=== PATIENT | female | born 1965 | race Caucasian/White ===

== ENCOUNTER 2020-03-02 00:08 | Emergency (ER) | payer OTHER ==
[~2020-03-02] VITALS: Ht 162.6 cm; Wt 73.6 kg
[~2020-03-02 00:08] MED LIST: HYDR1TAB13 PO
--- NOTE | 2020-03-02 00:14 | PHYS DOC ---
Past History Past Medical History: Arthritis, Diabetes, High Cholesterol, Hypertension Past Surgical History: Other Alcohol Use: None Drug Use: None General Adult HPI: HPI: ".. I getting weird episodes of swelling in hands and ..feet.. ".. " I got an apt. on with my primary...at 0900 hrs. but I just wanted someone to look at it tonight... It sometimes in my feet, sometimes in the other hand.. it is weird. ".. " It s been going on the past 3 weeks.. more this last two weeks.." Patient is a 55 year old female who presents with right hand edema. Patient states onset of the stent was within the last 24 hours. Patient has had polyarthritic complaints and myalgia in her joints. Areas of flare up are sometimes in other hand or and feet. There is a history of possible rheumatoid arthritis and has previously had a positive PATRICK. 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 Patient's family history multiple members have rheumatoid arthritis or rheumatological complaints. Pt does follow at [place] and with Dr. Robbins. No recent travel. No history of trauma. No history of recent fever chills. No specific ill contacts. Patient right hand is somewhat erythemic.. Fingers are swollen. Does have range of motion. Cap refill is equal to left hand. No adenopathy in arm. No striations. Pain and joint seem worse early in the morning but improves throughout the day. Patient does have a history of diabetes and hypertension. Does have follow-up pending at [facility] for A1c and other blood work. Patient denies any blood draws currently. Patient declines any x-rays currently. Patient states she just wanted to have someone else see the strange swelling she gets in her hands and feet. Review of Systems: Review of Systems: Constitutional: Denies fever or chills Eyes: Denies change in visual acuity HENT: Denies nasal congestion or sore throat Respiratory: Denies cough or shortness of breath Cardiovascular: Denies chest pain or edema GI: Denies abdominal pain, nausea, vomiting, bloody stools or diarrhea : Denies dysuria Musculoskeletal: Complains of episodes of polyarthritis. Different areas of edema and pain sometimes right hand sometimes feet. Integument: Denies rash Neurologic: Denies headache, focal weakness or sensory changes Endocrine: Denies polyuria or polydipsia Lymphatic: Denies swollen glands Psychiatric: Denies depression or anxiety Family History: Family History: Multiple family members with rheumatological issues, rheumatoid arthritis. Mother and great aunt had diagnosis of rheumatoid Current Medications: Current Meds: See nursing for home meds Allergies: Allergies: Allergies Coded Allergies Type Severity Reaction Last Updated Verified No Known Drug Allergies 02/11/16 No Physical Exam: PE: Constitutional: Moderate acute distress, non-toxic appearance. [] HENT: Normocephalic, atraumatic, bilateral external ears normal, oropharynx moist, no oral exudates, nose mild edema and clear rhinorrhea. No temporal artery tenderness Eyes: PERRLA, EOMI, conjunctiva normal, no discharge. [] Neck: Normal range of motion, no tenderness, supple, no stridor. [] Cardiovascular:Heart rate regular rhythm, no murmur, PMI to left Lungs & Thorax: Bilateral breath sounds equal apex with scattered wheezes auscultation [] Abdomen: Bowel sounds normal, soft, no tenderness, no masses, no pulsatile masses. [] Skin: Warm, dry, no erythema, no rash. Poor turgor. Back: No tenderness, no CVA tenderness. [] Extremities: Right hand tenderness, no cyanosis, no clubbing, ROM intact, right hand edema. [] Neurologic: Alert and oriented X 3, normal motor function, normal sensory function, no focal deficits noted. [] Psychologic: Affect anxious, judgement normal, mood normal. [] EKG: EKG: [] Radiology/Procedures: Radiology/Procedures: Declines x-ray at this time [] Heart Score: Risk Factors: Risk Factors: DM, Current or recent (<one month) smoker, HTN, HLP, family history of CAD, obesity. Risk Scores: Score 0 - 3: 2.5% MACE over next 6 weeks - Discharge Home Score 4 - 6: 20.3% MACE over next 6 weeks - Admit for Clinical Observation Score 7 - 10: 72.7% MACE over next 6 weeks - Early Invasive Strategies Course & Med Decision Making: Course & Med Decision Making Pertinent Labs and Imaging studies reviewed. (See chart for details) Patient declines lab work at this time. Recommend patient keep follow-up with primary care at [place]. Consider baseline CBC and electrolytes. To also consider adding rheumatological labs such as rheumatoid factor, PATRICK, DS, ADNA, cyclic citrullinated peptide antibody, sed rate, and/or CRP, Sysphillis titers, lupus ect. .Recommended plan films of hands. Would take anti-inflammatories and Tylenol for discomfort currently. Return if she elects to have x-rays and labs here . Return if any concerns. Advised patient presentation somewhat consistent with a mixed tissue, ploymyalgia rheumatica, rheumatoid arthritis, and rheumatological inflammation. Especially with rotating swollen painful joints. Impression: 1. Multiple joint arthritic complaints that seem to rotate-suspect rheumatoid arthritis versus other rheumatological issues causing the arthritic pain and interment edema 2. History of diabetes [] Dragon Disclaimer: Oswaldo Disclaimer: This electronic medical record was generated, in whole or in part, using a voice recognition dictation system. Departure Departure: Referrals: TANIA ROBBINS DO (PCP) Oswaldo Disclaimer This chart was dictated in whole or in part using Voice Recognition software in a busy, high-work load, and often noisy Emergency Department environment. It may contain unintended and wholly unrecognized errors or omissions. NIRAJ KIRKPATRICK MD Mar 02, 2020 00:14
[2020-03-02 01:44] VITALS: BP 134/68
== END 2020-03-02 01:44 | disposition home or self-care (01) ==
LOC: ER 00:08
DX: M19.041 Primary osteoarthritis, right hand (principal); E11.9 Type 2 diabetes mellitus without complications; E78.00 Pure hypercholesterolemia, unspecified; I10 Essential (primary) hypertension
CPT/HCPCS: 99282

== ENCOUNTER 2020-04-03 10:01 | Emergency (ER) | payer OTHER ==
[~2020-04-03] VITALS: Ht 162.6 cm; Wt 73.6 kg
[2020-04-03 10:16] VITALS: BP 115/76
[2020-04-03] MEDS ORDERED: DEXAMETHASONE SOD PHOS 10 MG/ML VIAL. IM ONE (10:45)
[2020-04-03] MEDS ORDERED: HYDR50CA2 PO (10:48)
[2020-04-03] MEDS ORDERED: FEXO180T81 PO (10:48)
--- NOTE | 2020-04-03 10:48 | PHYS DOC ---
Past History Past Medical History: Arthritis, Diabetes, High Cholesterol, Hypertension Past Surgical History: Other Alcohol Use: None Drug Use: None General Adult EDM: Chief Complaint: FACE PROBLEM HPI: HPI: Patient is a 55-year-old female coming in for right eye swelling. Complaining of the itching rash on her stomach. Has been having multiple outbreaks of pruritic rashes. Also has a history of chronic UTIs. Denies any fevers, mouth sores, difficulty swallowing. No tearing or drainage from the eye. No vision changes or pain. States that she took Benadryl last night that she usually takes for sleep the itching got better. Has a new detergents but denies any other new medications or exposures. Has been seeing her primary care and being evaluated. Suggesting a neurologist this week. Has a history of allergic reactions to seafood which required similar reactions. No recent illness, fevers, coughing, lower extremity edema. Review of Systems: Review of Systems: All other systems within normal limits except for as noted in the HPI Allergies: Allergies: Allergies Coded Allergies Type Severity Reaction Last Updated Verified No Known Drug Allergies 03/02/20 No Physical Exam: PE: Constitutional: Well developed, well nourished, no acute distress, non-toxic appearance. [] HENT: Normocephalic, atraumatic, bilateral external ears normal, nose normal, swelling around right eye. [] Eyes: PERRLA, conjunctiva normal, no discharge, extraocular was intact. [] Neck: No rigidity, supple, no stridor. [] Cardiovascular: Regular rate and rhythm, brisk cap refill [] Lungs & Thorax: Non labored symmetric respirations, no tachypnea or respiratory distress [] Abdomen: Soft, nondistended. Skin: Warm, dry, no erythema, erythematous rash on left lower abdomen. [] Back: Unremarkable Extremities: No deformities, range of motion grossly intact, no lower extremity edema [] Neurologic: Alert and oriented X 3, no focal deficits noted. [] Psychologic: Affect normal, judgement normal, mood normal. [] Current Patient Data: Vital Signs: Vital Signs Date Time Temp Pulse Resp B/P (MAP) Pulse Ox O2 Delivery O2 Flow Rate FiO2 04/03/20 10:16 97.7 64 16 115/76 (89) 98 Room Air EKG: EKG: [] Radiology/Procedures: Radiology/Procedures: [] Heart Score: Risk Factors: Risk Factors: DM, Current or recent (<one month) smoker, HTN, HLP, family history of CAD, obesity. Risk Scores: Score 0 - 3: 2.5% MACE over next 6 weeks - Discharge Home Score 4 - 6: 20.3% MACE over next 6 weeks - Admit for Clinical Observation Score 7 - 10: 72.7% MACE over next 6 weeks - Early Invasive Strategies Course & Med Decision Making: Course & Med Decision Making Pertinent Labs and Imaging studies reviewed. (See chart for details) [] Dragon Disclaimer: Dragon Disclaimer: This electronic medical record was generated, in whole or in part, using a voice recognition dictation system. Departure Departure: Impression: Primary Impression: Acute urticaria Disposition: 01 DC HOME SELF CARE/HOMELESS Condition: STABLE Referrals: TANIA ROBBINS DO (PCP) Patient Instructions: Pruritus Scripts Fexofenadine Hcl (MAGI ALLERGY) 180 Mg Tablet 1 TAB PO DAILY for allergy symptoms for 30 Days, #30 TAB 0 Refills Prov: GIFTY HARRIS MD 04/03/20 Hydroxyzine Pamoate (HYDROXYZINE PAMOATE) 50 Mg Capsule 1 CAP PO TID PRN for ITCHING for 30 Days, #90 CAP 1 Refill Prov: GIFTY HARRIS MD 04/03/20 GIFTY HARRIS MD Apr 03, 2020 10:48
== END 2020-04-03 10:56 | disposition home or self-care (01) ==
LOC: ER 10:01
DX: L50.8 Other urticaria (principal); H57.89 Other specified disorders of eye and adnexa; M19.90 Unspecified osteoarthritis, unspecified site; E11.9 Type 2 diabetes mellitus without complications; E78.00 Pure hypercholesterolemia, unspecified; I10 Essential (primary) hypertension; Z87.440 Personal history of urinary (tract) infections
CPT/HCPCS: 96372; 99283; J1100

== ENCOUNTER 2021-05-13 19:42 | Emergency (ER) | payer OTHER ==
[~2021-05-13] VITALS: Ht 160 cm; Wt 79.1 kg
[~2021-05-13 19:42] MED LIST changes: +FEXO180T81 PO; +HYDR50CA2 PO
[2021-05-13 20:10] VITALS: BP 148/77
--- NOTE | 2021-05-13 20:50 | PHYS DOC ---
Past History Past Medical History: Arthritis, Diabetes, High Cholesterol, Hypertension Past Surgical History: Other Alcohol Use: None Drug Use: None Adult General Chief Complaint Chief Complaint: ALLERGIC REACTION HPI HPI Patient is a 56-year-old female with endorsed allergies to many foods and medications who presents with a chief complaint of hives since this morning. States that she woke up she had some hives on her arms, upper chest and shoulder that itch. States she is not aware of any exposures to any known allergens. Denies any headache, lightheadedness, cough, wheeze, pain or trouble swallowing, swollen lips or tongue, abdominal pain, nausea, vomiting, diarrhea. Review of Systems Review of Systems Review of systems otherwise unremarkable except noted in HPI Allergies Allergies Allergies Coded Allergies Type Severity Reaction Last Updated Verified No Known Drug Allergies 03/02/20 No Physical Exam Physical Exam Constitutional: Well developed, well nourished, no acute distress, non-toxic appearance. [] HENT: Normocephalic, atraumatic, bilateral external ears normal, oropharynx moist, no oral exudates, nose normal. [] Eyes: conjunctiva normal, no discharge. [] Neck: Normal range of motion, no tenderness, supple, no stridor. [] Cardiovascular:Heart rate regular rhythm, no murmur [] Lungs & Thorax: Bilateral breath sounds clear to auscultation [] Abdomen: Bowel sounds normal, soft, no tenderness, no masses, no pulsatile masses. [] Skin: Warm, dry, scattered urticaria on arms and upper chest Back: no CVA tenderness. [] Extremities: No tenderness, no cyanosis, no clubbing, ROM intact, no edema. [] Neurologic: Alert and oriented X 3, normal motor function, normal sensory function, no focal deficits noted. [] Psychologic: Affect normal, judgement normal, mood normal. [] EKG EKG [] Radiology/Procedures Radiology/Procedures [] Heart Score C/O Chest Pain: No Risk Factors: Risk Factors: DM, Current or recent (<one month) smoker, HTN, HLP, family history of CAD, obesity. Risk Scores: Risk Factors: DM, Current or recent (<one month) smoker, HTN, HLP, family history of CAD, obesity. Course & Med Decision Making Course & Med Decision Making Patient is a 56-year-old female who presents with urticaria Vital signs nonconcerning. Physical exam noted above. Given steroids, Benadryl and Pepcid. Urticaria resolving quickly in the ED. No other symptoms or signs of anaphylaxis. Discussed symptom treatment at home. Advised to follow-up with primary care physician so she can update on ED visit and try to avoid things that she knows can cause allergic reactions Family grateful, verbalized understanding and agreed with plan of discharge. Dragon Disclaimer Dragon Disclaimer This electronic medical record was generated, in whole or in part, using a voice recognition dictation system. Departure Departure: Impression: Primary Impression: Urticaria Disposition: HOME / SELF CARE / HOMELESS Condition: STABLE Referrals: TANIA ROBBINS DO (PCP) Patient Instructions: Gerald Additional Instructions: Thank you for coming into the emergency department tonight and allowing us to take care of you. Please read the attached information carefully go over things we discussed. You can continue to take Benadryl, 50 mg every 6 hours as needed for itching. Please try to stay away from any known allergic exposures. Please follow-up as soon as you can with your primary care physician update on your ED visit and set up a follow-up. Please come back with new or concerning symptoms as we discussed. KATERINA DELEON MD May 13, 2021 20:50
[2021-05-13] MEDS ORDERED: diphenhydrAMINE HCL 25 MG CAPSULE PO ONE (21:00)
[2021-05-13] MEDS ORDERED: DEXAMETHASONE SOD PHOS 10 MG/ML VIAL. PO ONE (21:00)
[2021-05-13] MEDS ORDERED: FAMOTIDINE 20 MG TABLET PO ONE (21:00)
== END 2021-05-13 21:05 | disposition home or self-care (01) ==
LOC: ER 19:42
DX: L50.9 Urticaria, unspecified (principal); M19.90 Unspecified osteoarthritis, unspecified site; E11.9 Type 2 diabetes mellitus without complications; E78.00 Pure hypercholesterolemia, unspecified; I10 Essential (primary) hypertension
CPT/HCPCS: 99284; J1100; Q0163